=== PATIENT | male | born 1970 | race African-American/Black ===

== ENCOUNTER 2017-11-15 15:46 | Emergency (ER) | payer OTHER ==
[~2017-11-15] VITALS: Ht 177.8 cm; Wt 94.8 kg
[2017-11-15 16:14] VITALS: BP 167/116
== END 2017-11-15 19:15 | disposition left against medical advice (07) ==
LOC: ER 15:46
DX: R51 Headache (principal); Z53.21 Procedure and treatment not carried out due to patient leaving prior to being seen by health care provider
CPT/HCPCS: 70450